=== PATIENT | female | born 1995 | race African-American/Black ===

== ENCOUNTER 2020-04-16 10:45 | Emergency (ER) | payer OTHER ==
[~2020-04-16] VITALS: Ht 152.4 cm; Wt 52.2 kg
[2020-04-16 10:49] VITALS: BP 105/81
[2020-04-16 11:32] LABS: BASOPHILS % (AUTO) 0.5 % (0.0-2.0); EOSINOPHILS % (AUTO) 0.5 % (0.0-6.0); HEMATOCRIT 39 % (33-45); HEMOGLOBIN 12.5 g/dL (11.5-14.8); LYMPHOCYTES % (AUTO) 43.3 % (20.0-44.0); MEAN CORPUSCULAR HGB CONC 33 g/dl (31.0-36.0); MEAN CORPUSCULAR VOLUME 82 fL (82-100); MONOCYTES # (AUTO) 0.4 /CMM (0.1-1.30); MONOCYTES % (AUTO) 9.2 % (2.0-12.0); NEUTROPHILS # (AUTO) 2.1 /CMM (1.8-8.9); NEUTROPHILS % (AUTO) 46.5 % (43.0-81.0); PLATELET COUNT (AUTO) 192 /CMM (150-450); RED BLOOD CELL COUNT(AUTO) 4.68 MIL/uL (4.0-5.2); WHITE BLOOD COUNT (AUTO) 4.5 K/uL (4.3-11.0)
== END 2020-04-16 12:10 | disposition home or self-care (01) ==
LOC: ER 10:48
DX: Z32.01 Encounter for pregnancy test, result positive (principal); Z88.8 Allergy status to other drugs, medicaments and biological substances; Z88.1 Allergy status to other antibiotic agents
CPT/HCPCS: 36415; 76805-TC; 84702-TC; 85025-TC

== ENCOUNTER 2020-04-19 08:17 | Emergency (ER) | payer OTHER ==
[~2020-04-19] VITALS: Ht 160 cm; Wt 54.4 kg
[2020-04-19 08:38] VITALS: BP 128/86
== END 2020-04-19 10:10 | disposition home or self-care (01) ==
LOC: ER 08:21
DX: Z00.8 Encounter for other general examination (principal); Z88.2 Allergy status to sulfonamides; Z88.1 Allergy status to other antibiotic agents
CPT/HCPCS: 36415; 84702-TC

== ENCOUNTER 2020-06-10 08:17 | Emergency (ER) | payer OTHER ==
[~2020-06-10] VITALS: Ht 160 cm; Wt 59.0 kg
[2020-06-10 08:51] VITALS: BP 120/60
--- NOTE | 2020-06-10 10:17 | NUR ---
DC home instruction given agrees to follow up PMD in AM .
== END 2020-06-10 10:18 | disposition home or self-care (01) ==
LOC: ER 08:22
DX: Z32.02 Encounter for pregnancy test, result negative (principal); Z88.2 Allergy status to sulfonamides; Z88.1 Allergy status to other antibiotic agents
CPT/HCPCS: 36415; 84702-TC